=== PATIENT | female | born 1940 | race Caucasian/White ===

== ENCOUNTER 2018-04-28 19:15 | Observation (INO) ==
[2018-04-28] MEDS ORDERED: ONDANSETRON 4 MG/2 ML VIAL IV PRN (21:36)
[2018-04-28] MEDS ORDERED: ACETAMINOPHEN 325 MG TABLET PO PRN (21:36)
[2018-04-28] MEDS ORDERED: MORPHINE 4 MG/1 ML VIAL IV PRN (21:36)
[2018-04-28] MEDS ORDERED: DEXTROSE 50% 25 GM/50 ML VIAL IV PRN (22:15)
[2018-04-28] MEDS ORDERED: GLUCAGON 1 MG VIAL IM PRN (22:15)
[2018-04-28] MEDS ORDERED: NITROGLYCERIN SL 0.4 MG TABLET SL PRN (22:51)
[2018-04-29] MEDS: SODIUM CHLORIDE 0.9% 1,000 ML IV SCH ×2 (00:15→14:01)
[2018-04-29 04:55] LABS: Eosinophils # 0.1 10*3/uL (0.0-0.87); Hematocrit 33.4 VOL% (35.7-47.0); Hemoglobin 10.8 GM/DL (12.0-16.0); Immature Granulocytes % 0.5 %; Immature Granulocytes Absolute 0.02 #; Lymphocytes % 24.1 % (21.3-54.2); Mean Corpuscular HGB Conc 32.3 GM/DL (32-36); Mean Corpuscular Hemoglobin 31 PG (27-34); Mean Corpuscular Volume 96.8 FL (87-102); Mean Platelet Volume 9.9 FL (9.6-12.0); Monocytes # 0.4 10*3/uL (0.11-0.8); Monocytes % 11.2 % (1.7-12.7); Neutrophils # 2.5 10*3/uL (1.4-7.4); Neutrophils % 62.2 % (38.7-73.9); Platelet Count 135 T/CUMM (130-400); Red Blood Count 3.45 MC/CUMM (3.8-5.5); Red Cell Distribution Width 13.6 % (9.3-17.3); White Blood Count 3.9 T/CUMM (4-12)
[2018-04-29 05:28] LABS: Albumin 3.3 G/DL (3.4-5.0); Bilirubin,Total 0.6 MG/DL (0.2-1.0); Calcium 9.4 MG/DL (8.5-10.1); Osmolality,Calculated 289.7 MOS/KG (273-304); Potassium 3.6 MMOL/L (3.5-5.1); Risk Ratio 3.25; Thyroid Stimulating Hormone 0.799 uIU/ml (0.358-3.74); Total Protein 6.4 G/DL (6.4-8.3)
[2018-04-29] MEDS: METOPROLOL SUCCINATE XL 25 MG TABLET PO SCH (11:24)
[2018-04-29] MEDS: PANTOPRAZOLE 40 MG TABLET PO SCH (11:24)
[2018-04-29] MEDS: ASPIRIN 325 MG TABLET PO SCH (11:25)
[2018-04-29] MEDS: FLUoxetine 20 MG CAPSULE PO SCH (11:25)
[2018-04-29] MEDS: ENOXAPARIN 40 MG/0.4 ML SYRINGE SUBCUT SCH (11:25)
[2018-04-29] MEDS: INSULIN LISPRO 100 UNIT/ML SUBCUT SCH ×3 (11:25→17:53)
[2018-04-29] MEDS: LISINOPRIL 10 MG TABLET PO SCH (11:25)
[2018-04-29] MEDS ORDERED: LOVASTATIN 20 MG TABLET PO SCH (21:00)
[2018-04-30] MEDS: INSULIN LISPRO 100 UNIT/ML SUBCUT SCH ×3 (00:54→15:20)
[2018-04-30] MEDS: SODIUM CHLORIDE 0.9% 1,000 ML IV SCH ×2 (03:30→15:21)
[2018-04-30 04:18] LABS: Eosinophils # 0.1 10*3/uL (0.0-0.87); Eosinophils % 2.4 % (0.00-10.9); Hematocrit 30.3 VOL% (35.7-47.0); Lymphocytes # 0.9 10*3/uL (1.4-4.0); Lymphocytes % 29.4 % (21.3-54.2); Mean Corpuscular Hemoglobin 32 PG (27-34); Mean Corpuscular Volume 96.8 FL (87-102); Mean Platelet Volume 10.1 FL (9.6-12.0); Monocytes # 0.3 10*3/uL (0.11-0.8); Monocytes % 11.4 % (1.7-12.7); Neutrophils # 1.6 10*3/uL (1.4-7.4); Neutrophils % 56.8 % (38.7-73.9); Platelet Count 111 T/CUMM (130-400); Red Blood Count 3.13 MC/CUMM (3.8-5.5); Red Cell Distribution Width 13.5 % (9.3-17.3); White Blood Count 2.9 T/CUMM (4-12)
[2018-04-30 04:48] LABS: Calcium 8.6 MG/DL (8.5-10.1); Osmolality,Calculated 291.6 MOS/KG (273-304); Potassium 3.7 MMOL/L (3.5-5.1)
[2018-04-30] MEDS: ASPIRIN 325 MG TABLET PO SCH (08:27)
[2018-04-30] MEDS: FLUoxetine 20 MG CAPSULE PO SCH (08:27)
[2018-04-30] MEDS: PANTOPRAZOLE 40 MG TABLET PO SCH (08:27)
[2018-04-30] MEDS: ENOXAPARIN 40 MG/0.4 ML SYRINGE SUBCUT SCH (08:27)
[2018-04-30] MEDS: METOPROLOL SUCCINATE XL 25 MG TABLET PO SCH (08:27)
[2018-04-30] MEDS: LISINOPRIL 10 MG TABLET PO SCH (08:27)
[2018-04-30 11:58] VITALS: BP 143/69
== END 2018-04-30 12:38 | disposition home or self-care (01) ==
LOC: SUATTDRO 20:26 → INTOOBSV 20:26 → N.TELEN 20:26
PROVIDERS: ADMIT Internal Medicine; ATTEND Internal Medicine

== ENCOUNTER 2018-07-23 08:44 | Observation (INO) ==
[2018-07-23] MEDS ORDERED: ONDANSETRON 4 MG/2 ML VIAL IV PRN (11:14)
[2018-07-23] MEDS ORDERED: ACETAMINOPHEN 325 MG TABLET PO PRN (11:14)
[2018-07-23] MEDS ORDERED: diphenhydrAMINE CAP 25 MG CAPSULE PO PRN (11:14)
[2018-07-23] MEDS ORDERED: NIFEdipine 10 MG CAPSULE PO PRN (11:16)
[2018-07-23] MEDS ORDERED: ENOXAPARIN 40 MG/0.4 ML SYRINGE SUBCUT SCH (11:30)
[2018-07-23] MEDS: FUROSEMIDE 20 MG TABLET PO SCH (12:18)
[2018-07-23] MEDS: PANTOPRAZOLE 20 MG TABLET PO SCH (12:18)
[2018-07-23] MEDS: METOPROLOL SUCCINATE XL 25 MG TABLET PO SCH (12:18)
[2018-07-23] MEDS: SODIUM CHLORIDE 0.9% 1,000 ML IV SCH (12:18)
[2018-07-23] MEDS: amLODIPine 2.5 MG TABLET PO SCH (17:08)
[2018-07-24 03:20] LABS: Hematocrit 34.8 VOL% (35.7-47.0); Hemoglobin 11.1 GM/DL (12.0-16.0); Immature Granulocytes % 0.4 %; Immature Granulocytes Absolute 0.02 #; Lymphocytes # 0.6 10*3/uL (1.4-4.0); Lymphocytes % 10.4 % (21.3-54.2); Mean Corpuscular HGB Conc 31.9 GM/DL (32-36); Mean Corpuscular Hemoglobin 30 PG (27-34); Mean Corpuscular Volume 93.3 FL (87-102); Mean Platelet Volume 9.9 FL (9.6-12.0); Monocytes # 0.4 10*3/uL (0.11-0.8); Monocytes % 7.8 % (1.7-12.7); Neutrophils # 4.6 10*3/uL (1.4-7.4); Neutrophils % 81.4 % (38.7-73.9); Platelet Count 158 T/CUMM (130-400); Red Blood Count 3.73 MC/CUMM (3.8-5.5); Red Cell Distribution Width 12.9 % (9.3-17.3); White Blood Count 5.7 T/CUMM (4-12)
[2018-07-24 03:41] LABS: Calcium 9.2 MG/DL (8.5-10.1); Potassium 3.5 MMOL/L (3.5-5.1)
[2018-07-24] MEDS: SODIUM CHLORIDE 0.9% 1,000 ML IV SCH (04:10)
[2018-07-24] MEDS: amLODIPine 2.5 MG TABLET PO SCH (08:01)
[2018-07-24] MEDS: PANTOPRAZOLE 20 MG TABLET PO SCH (08:01)
[2018-07-24] MEDS: FUROSEMIDE 20 MG TABLET PO SCH (08:01)
[2018-07-24] MEDS: METOPROLOL SUCCINATE XL 25 MG TABLET PO SCH (08:01)
[2018-07-24 08:21] VITALS: BP 163/70
[2018-07-24] MEDS ORDERED: FLUoxetine 20 MG CAPSULE PO SCH (09:00)
== END 2018-07-24 11:15 | disposition home or self-care (01) ==
LOC: N.CC → SUATTDRO 10:08
PROVIDERS: ADMIT Internal Medicine; ATTEND Internal Medicine